=== PATIENT | female | born 1950 | race Caucasian/White ===

== ENCOUNTER 2016-07-28 11:37 | Emergency (ER) | payer BC ==
[2016-07-28 12:10] VITALS: BP 129/70
--- NOTE | 2016-07-28 12:22 | UC ---
Abdominal Pain Female HPI - HPI Summary HPI Summary: 66 yo F c/o diffuse abdominal pain and alternating bowel habits, off and on for weeks, with pain worse the past two days. Pt is normally very healthy and has never had problems with constipation, but pt did recently lose her to suicide . States she has not been eating normally like she was, has lost 10 lbs. Has not been exercising. States she is mostly constipated with only once a day stool when it was twice a day, and only small amounts, but she did have a bout of diarrhea several days ago. No rectal pain or bleeding. No hx hemorrhoids. Has not tried any meds. Prefers to use natural methods, tried some kava. Came today because the abd pain was worse. No vomiting. No fever. Otherwise healthy. No urinary symptoms. Pt has had her colonoscopies as scheduled and does not recall any polyps. States she is scheduled every five years for them. - History of Current Complaint Chief Complaint: UCAbdominalPain Stated Complaint: ABDOMINAL PAIN Time Seen by Provider: 07/28/16 12:22 Hx Obtained From: Patient Hx Last Menstrual Period: n/a Onset/Duration: Gradual Onset, Lasting Days, Still Present Timing: Constant Severity Initially: Mild Severity Currently: Moderate Pain Intensity: 8 Pain Scale Used: 0-10 Numeric Location: Diffuse Radiates: No Character: Colicy, Cramping, Other - bloated Aggravating Factor(s): Nothing Alleviating Factor(s): Nothing Associated Signs and Symptoms: Positive: Constipation, Decreased Appetite, Diarrhea - one episode, resolved spont. Negative: Diaphoresis, Fever, Blood in Stool, Urinary Symptoms, Vaginal Bleeding, Vaginal Discharge, Nausea, Vomiting Allergies/Adverse Reactions: Allergies Allergy/AdvReac Type Severity Reaction Status Date / Time No Known Allergies Allergy Verified 07/28/16 12:10 Home Medications: Home Medications Fluticasone NASAL SPRAY 50MCG* [Flonase NASAL SPRAY 50MCG*] 2 spray BOTH NARES DAILY 07/28/16 [History Confirmed 07/28/16] PMH/Surg Hx/FS Hx/Imm Hx Previously Healthy: Yes - Surgical History Surgical History: Yes Surgery Procedure, Year, and Place: tubal ligation. laser nasal surgery - Family History Family History: negative for HTN or CAD - Social History Alcohol Use: Daily Alcohol Amount: 1 Substance Use Type: None Smoking Status (MU): Former Smoker Review of Systems Constitutional: Negative Skin: Negative Eyes: Negative ENT: Negative Respiratory: Negative Cardiovascular: Negative Gastrointestinal: Abdominal Pain, Other - constipation Genitourinary: Negative Motor: Negative Neurovascular: Negative Musculoskeletal: Negative Neurological: Negative Psychological: Negative All Other Systems Reviewed And Are Negative: Yes Physical Exam Triage Information Reviewed: Yes Appearance: Well-Appearing, Well-Nourished, Pain Distress, Other: - actual weight 122.4 with shoes and clothes Vital Signs: Initial Vital Signs Temp 99.7 F 07/28/16 12:05 Pulse 78 07/28/16 12:05 Resp 14 07/28/16 12:05 BP 129/70 07/28/16 12:05 Pulse Ox 99 07/28/16 12:05 Vital Signs Reviewed: Yes Eyes: Positive: Conjunctiva Clear ENT: Positive: Normal ENT inspection Neck: Positive: Supple Respiratory: Positive: Lungs clear, Normal breath sounds, No respiratory distress Cardiovascular: Positive: RRR, No Murmur, Pulses Normal, Brisk Capillary Refill Abdomen Description: Positive: No Organomegaly, Soft, Other: - mild diffuse tenderness; rectal small nonthrombosed external hemorrhoids, non painful; soft green stool, guaiac neg stool; not impacted; no masses, no internal hemorrhoids. Negative: Nontender, Bruit, CVA Tenderness (R), CVA Tenderness (L) , Distended, Guarding, Hernia @, Hepatomegaly, McBurney's Point Tenderness, Peritoneal Signs, Pulsatile Mass, Splenomegaly Bowel Sounds: Positive: Hyperactive Musculoskeletal: Positive: Strength Intact, ROM Intact Neurological: Positive: Alert, Muscle Tone Normal Psychological Exam: Normal Skin Exam: Normal Abd Pain Female Course/Dx - Course Course Of Treatment: UA few wbc's trace blood, ketones, sp grav 1.015. Pt is without urinary symptoms so will not treat for UTI at this time. Abdomen is still soft although diffuse abd pain, and pt can jump up and down without doubling over, so no peritoneal signs, so do not feel pt has to go to ED at this point. Stool is guaiac neg, and pt is not impacted. Will encourage more fiber, no need for laxatives at this point. Pt advised to go to ED if worse. - Differential Dx/Diagnosis Differential Diagnosis: Bowel Obstruction, Constipation, Diverticulitis, Renal Colic, Urinary Tract Infection Provider Diagnoses: abdominal pain Discharge - Discharge Plan Condition: Stable Disposition: HOME Prescriptions: Polyethylene Glycol 3350* [Miralax*] 17 gm PO DAILY #30 packet Simethicone CHEW TAB* [Mylicon*] 80 mg PO QID #30 tab.chew Patient Education Materials: Abdominal Pain (ED), Simethicone (By mouth), Gas and Bloating (ED) Referrals: Ana Paula Beyer NP [Primary Care Provider] - 3 Days Additional Instructions: Your urine test did show a few cells, so we have sent it for culture. We will notify you if you need additional treatment based on those results. Your rectal exam did not show that you were impacted with stool, and there was no blood in the stool. The stool was soft, and there were small nonpainful external hemorrhoids. Based on exam you do not have an acute abdomen, or a surgical abdomen, although you are uncomfortable. Try resuming your previous diet with more fiber and fruits and vegetables. Try drinking more water. Try walking more. It is OK to exercise again when you feel up to it. Go to the emergency room if you double over in pain, see blood, have vomiting, have a fever, or any new or worsening symptoms.
== END 2016-07-28 13:20 | disposition home or self-care (01) ==
LOC: UCCORT 11:37
DX: R10.9 Unspecified abdominal pain (principal); Z87.891 Personal history of nicotine dependence
CPT/HCPCS: 81003; 82270; 87086; 99212; G0463

== ENCOUNTER 2018-06-02 10:06 | Emergency (ER) | payer MEDICARE, BC ==
[2018-06-02 10:45] VITALS: BP 168/72
--- NOTE | 2018-06-02 10:51 | UC ---
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 PT STATES TICK THERE FROM GARDENING SINCE THIS PAST SUNDAY OR SUNDAY. NO FEVER, RASH, JOINT PAINS OR FATIGUE. - History of Current Complaint Chief Complaint: TYL[place]kin Stated Complaint: TICK Time Seen by Provider: 06/02/18 10:37 Hx Obtained From: Patient Hx Last Menstrual Period: n/a Pain Intensity: 0 - Allergy/Home Medications Allergies/Adverse Reactions: Allergies Allergy/AdvReac Type Severity Reaction Status Date / Time No Known Allergies Allergy Verified 06/02/18 10:36 Home Medications: Home Medications Ascorbic Acid TAB* [Vitamin C TAB*] 500 mg PO DAILY 06/02/18 [History Confirmed 06/02/18] Cholecalciferol TAB* [Vitamin D TAB*] 2,000 units PO DAILY 06/02/18 [History Confirmed 06/02/18] L.acidoph,Paracasei, B.lactis [Probiotic] 1 each PO DAILY 06/02/18 [History Confirmed 06/02/18] [place]-3 Fatty Acids (Nf) [Fish Oil (NF)] 1,000 mg PO DAILY 06/02/18 [History Confirmed 06/02/18] PMH/Surg Hx/FS Hx/Imm Hx Previously Healthy: Yes - Surgical History Surgical History: Yes Surgery Procedure, Year, and Place: tubal ligation. laser nasal surgery - Family History Known Family History: Positive: Non-Contributory Family History: negative for HTN or CAD - Social History Alcohol Use: Daily Alcohol Amount: 1 wine nightly Substance Use Type: None Smoking Status (MU): Former Smoker When Did the Patient Quit Smoking/Using Tobacco: 5 months ago Review of Systems All Other Systems Reviewed And Are Negative: Yes Constitutional: Negative: Fever, Fatigue Skin: Negative: Rash Neurological: Negative: Headache Physical Exam Triage Information Reviewed: Yes Appearance: Well-Appearing Vital Signs: Initial Vital Signs Temp 98.1 F 06/02/18 10:38 Pulse 61 06/02/18 10:38 Resp 15 06/02/18 10:38 BP 168/72 06/02/18 10:38 Pulse Ox 100 06/02/18 10:38 Vital Signs Reviewed: Yes Eyes: Positive: Conjunctiva Clear Respiratory: Positive: No respiratory distress Cardiovascular: Positive: RRR Musculoskeletal: Positive: ROM Intact Neurological: Positive: Alert Psychological: Positive: Age Appropriate Behavior Skin Exam: Normal, Other - Abrasion R back with tiny black spec where tick removed. Course/Dx - Course Course Of Treatment: Tick site cleaned. - Diagnoses Provider Diagnosis: Tick bite Discharge - Sign-Out/Discharge Documenting (check all that apply): Patient Departure All imaging exams completed and their final reports reviewed: No Studies - Discharge Plan Condition: Stable Disposition: HOME Prescriptions: DOXYcycline CAP(*) [DOXYcycline 100MG CAP(*)] 200 mg PO ONCE #2 cap Patient Education Materials: Tick Bite (ED) Referrals: Ana Paula Beyer NP [Primary Care Provider] - If Needed - Billing Disposition and Condition Condition: STABLE Disposition: Home - Attestation Statements Provider Attestation: I was available for consult. This patient was seen by the [facility]. The patient was not presented to , seen by or examined by [facility] -Tre Sinclair MD
== END 2018-06-02 11:13 | disposition home or self-care (01) ==
LOC: UCCORT 10:06
DX: S20.469A Insect bite (nonvenomous) of unspecified back wall of thorax, initial encounter (principal); W57.XXXA Bitten or stung by nonvenomous insect and other nonvenomous arthropods, initial encounter; Y93.H2 Activity, gardening and landscaping; Y92.017 Garden or yard in single-family (private) house as the place of occurrence of the external cause; Z87.891 Personal history of nicotine dependence
CPT/HCPCS: 99212; G0463